=== PATIENT | female | born 1985 | race American Indian/Alaskan Native ===

== ENCOUNTER 2021-01-19 20:03 | Emergency (ER) | payer MEDICAID, OTHER ==
[2021-01-19 20:46] VITALS: BP 118/76
--- NOTE | 2021-01-19 21:07 | Event Note ---
ED Screening Note ED Screening Note: reports syncopal episode today states she "woke up on the bed" she states she had a rapid negative COVID test states she has had abdominal pain, back pain, occasional dry cough, diarrhea, SOB she denies any vomiting, CP, fever, leg swelling no recent travel, sick contact, or recent surgery pmhx asthma and "muscle spasms" endorses marijuana use and occasional ETOH use This initial assessment/diagnostic orders/clinical plan/treatment(s) is/are subject to change based on patients health status, clinical progression and re- assessment by fellow clinical providers in the ED. Further treatment and workup at subsequent clinical providers discretion. Patient/guardian urged not to elope from the ED as their condition may be serious if not clinically assessed and managed. Initial orders include: labs, EKG, CXR
[2021-01-19 21:24] LABS: Basophils % (Auto) 0.2 % (0.0-1.8); Eosinophils # (Auto) 0.1 K/mm3 (0.0-0.4); Eosinophils % (Auto) 0.6 % (0.0-4.3); Hematocrit 43.8 % (30.3-42.9); Hemoglobin 14.7 gm/dl (10.1-14.3); Lymphocytes # (Auto) 4.5 K/mm3 (1.2-5.4); Lymphocytes % (Auto) 45.7 % (13.4-35.0); Mean Corpuscular HGB Conc 34 % (30-34); Mean Corpuscular Volume 88 fl (79-97); Monocytes # (Auto) 0.7 K/mm3 (0.0-0.8); Monocytes % (Auto) 6.6 % (0.0-7.3); Platelet Count 186 K/mm3 (140-440); Red Blood Count 4.97 M/mm3 (3.65-5.03); Red Cell Distribution Width 13.2 % (13.2-15.2)
[2021-01-19 21:47] LABS: Alanine Aminotransferase 21 units/L (7-56); Albumin 4.5 g/dL (3.9-5); Blood Urea Nitrogen 14 mg/dL (7-17); Calcium 8.7 mg/dL (8.4-10.2); Hemolysis Index 17
[2021-01-19 21:48] LABS: BUN/Creatinine Ratio 20
--- NOTE | 2021-01-19 22:11 | XRay Report ---
CHEST 2 VIEWS INDICATION / CLINICAL INFORMATION: SOB. COMPARISON: None available. FINDINGS: SUPPORT DEVICES: None. HEART / MEDIASTINUM: No significant abnormality. LUNGS / PLEURA: No significant pulmonary or pleural abnormality. No pneumothorax. ADDITIONAL FINDINGS: No significant additional findings. IMPRESSION: 1. No acute findings. Signer Name: Heath Turcios MD Signed: 01/19/2021 10:06 PM Workstation Name: [id number]
[2021-01-19 22:36] LABS: Bilirubin,Urine NEG (Negative); Blood,Urine NEG (Negative); Color,Urine Yellow (Yellow); Mucus,Urine FEW /HPF; Protein,Urine <15 mg/dL mg/dL (Negative)
[2021-01-19] MEDS ORDERED: HYDROmorphone 1 MG/1 ML INJ IV ONE (22:48)
[2021-01-19] MEDS ORDERED: ONDANSETRON 4 MG/2 ML INJ IV ONE (22:48)
--- NOTE | 2021-01-19 22:52 | Emergency Department Report ---
ED General Adult HPI - General Chief complaint: Syncope Stated complaint: FAINTING SPELLS/NAUSEA/BACK PAIN PUI?: No Time Seen by Provider: 01/19/21 21:04 Source: patient Mode of arrival: Ambulatory Limitations: No Limitations - History of Present Illness Initial comments: Patient is a 35-year-old female that presents emergency room with complaints of syncope, nausea, vomiting, back pain, flank pain, abdominal pain, difficulty breathing, dizziness. Patient states that she passed out yesterday and passed out today. Patient states that she had severe right flank pain and abdominal pain and then passed out. Patient states that her abdominal pain started 3 days ago. Patient states her back pain and flank pain started 3 days ago patient states for she passed out she became dizzy. Patient states her dizziness has resolved. Patient states she has not fainted since 10 AM this morning. Patient states the abdominal pain, flank pain and back pain are a 10 out of 10. Patient states the pain is better with rest. Patient states her abdominal pain, back pain and flank pain are worse with movement and palpation. Patient denies blood in her vomitus. Patient denies diarrhea. Patient states she had a Covid test 2 days ago and it was negative. Patient denies head injury. Patient denies headache. Patient denies blurry vision. Patient denies neck pain. Patient denies chest pain. Patient states her shortness of breath is only there when her pain gets really high. Patient states her pain intensity is fluctuating. Patient denies recent travel. Patient denies recent international travel. Patient denies exposure to the novel coronavirus. Patient denies sick contacts. Patient denies fever and chills. Patient denies cough. Patient denies diarrhea. Patient denies coming in contact with anybody with symptoms of the novel coronavirus. Patient's last menstrual period was December 17 through January 02. Patient states she has a Nexplanon in her left upper extremity and is no chance of . -: Sudden Location: back, abdomen Severity scale (0 -10): 10 Quality: stabbing, sharp Consistency: constant Improves with: rest Worsens with: movement Associated Symptoms: nausea/vomiting, shortness of breath. denies: confusion, chest pain, cough, diaphoresis, fever/chills, headaches, loss of appetite, m alaise, rash, seizure, syncope, weakness Treatments Prior to Arrival: none - Related Data Previous Rx's Medication Instructions Recorded Last Taken Type Ondansetron [Zofran Odt] 4 mg PO Q6HR PRN #20 tab.rapdis 01/20/21 Unknown Rx Allergies Allergy/AdvReac Type Severity Reaction Status Date / Time No Known Allergies Allergy Unverified 01/19/21 20:46 ED Review of Systems ROS: Stated complaint: FAINTING SPELLS/NAUSEA/BACK PAIN Other details as noted in HPI Constitutional: denies: chills, fever Eyes: denies: eye pain, eye discharge, vision change ENT: denies: ear pain, throat pain Respiratory: denies: cough, shortness of breath, wheezing Cardiovascular: denies: chest pain, palpitations Endocrine: no symptoms reported Gastrointestinal: as per HPI, abdominal pain, nausea, vomiting. denies: diarrhea Genitourinary: denies: urgency, dysuria, discharge Musculoskeletal: denies: back pain, joint swelling, arthralgia Skin: denies: rash, lesions Neurological: denies: headache, weakness, paresthesias Psychiatric: denies: anxiety, depression Hematological/Lymphatic: denies: easy bleeding, easy bruising ED Past Medical Hx - Past Medical History Previous Medical History?: Yes Hx Hypertension: Yes Hx Asthma: Yes Additional medical history: Muscle Spasms - Surgical History Past Surgical History?: Yes Additional Surgical History: C-sections X 2 - Family History Family history: no significant - Social History Smoking Status: Never Smoker Substance Use Type: None - Medications Home Medications: Home Medications Medication Instructions Recorded Confirmed Last Taken Type Ondansetron [Zofran Odt] 4 mg PO Q6HR PRN #20 tab.pastordis 01/20/21 Unknown Rx ED Physical Exam - General Limitations: No Limitations General appearance: alert, in no apparent distress - Head Head exam: Present: atraumatic, normocephalic - Eye Eye exam: Present: normal appearance, PERRL Pupils: Present: normal accommodation - ENT ENT exam: Present: mucous membranes moist - Neck Neck exam: Present: normal inspection - Respiratory Respiratory exam: Present: normal lung sounds bilaterally. Absent: respiratory distress, wheezes, rales - Cardiovascular Cardiovascular Exam: Present: regular rate, normal rhythm. Absent: systolic mur mur, diastolic murmur, rubs, gallop - GI/Abdominal GI/Abdominal exam: Present: soft, tenderness (Right upper quadrant tenderness, right flank tenderness.), normal bowel sounds. Absent: distended, guarding - Extremities Exam Extremities exam: Present: normal inspection - Back Exam Back exam: Present: normal inspection - Neurological Exam Neurological exam: Present: alert, oriented X3, CN II-XII intact, normal gait, reflexes normal. Absent: abnormal gait, motor sensory deficit - Psychiatric Psychiatric exam: Present: normal affect, normal mood - Skin Skin exam: Present: warm, dry, intact, normal color. Absent: rash ED Course Vital Signs 01/19/21 20:35 Temperature 98.6 F Pulse Rate 80 Respiratory 20 Rate Blood Pressure 118/76 O2 Sat by Pulse 98 Oximetry - Reevaluation(s) Reevaluation #1: Patient states she is feeling better. Patient denies nausea. Patient tolerated ambulation. Patient tolerated p.o. intake. No further dizziness or syncopal ep isodes. Patient has not had any nausea or vomiting in the ER. I discussed all results and clinical findings with patient. I discussed plan of care with patient. Patient agrees with plan of care. Patient is stable for discharge. Patient will be discharged home. Patient given discharge instruct ions. Patient voiced understanding of discharge instructions. 01/20/21 00:02 ED Medical Decision Making - Lab Data Result diagrams: 01/19/21 21:10 01/19/21 21:10 - EKG Data -: EKG Interpreted by Me EKG shows normal: sinus rhythm, axis, intervals, QRS complexes, ST-T waves Rate: normal - Radiology Data Radiology results: report reviewed, image reviewed interpreted by me: Chest x-ray: No pneumonia, no pneumothorax, no foreign body, no osseous findings, no acute findings CT ABDOMEN AND PELVIS WITH CONTRAST INDICATION / CLINICAL INFORMATION: abd pain. flank pain. TECHNIQUE: Axial CT images were obtained through the abdomen and pelvis after 100 cc of Omnipaque [address] scans at this location are performed using CT dose reduction for ALARA by means of automated exposure control. COMPARISON: None available. FINDINGS: LOWER CHEST: No significant abnormality. LIVER: No significant abnormality. GALLBLADDER: No significant abnormality. BILE DUCTS: No significant abnormality. PANCREAS: No significant abnormality. SPLEEN: No significant abnormality. ADRENALS: No significant abnormality. RIGHT KIDNEY / URETER: No significant abnormality. LEFT KIDNEY / URETER: No significant abnormality. STOMACH / SMALL BOWEL: Stomach is distended with fluid and food. There are few fluid-filled loops of small bowel. There is no obstruction. COLON: No significant abnormality. APPENDIX: No significant abnormality. PERITONEUM: No free fluid. No free air. No fluid collection. LYMPH NODES: There are small enhancing nodes in the mesentery which are likely reactive. AORTA / ARTERIES: No significant abnormality. IVC / VEINS: No significant abnormality. URINARY BLADDER: No significant abnormality. REPRODUCTIVE ORGANS: No significant abnormality. ADDITIONAL FINDINGS: None. SKELETAL SYSTEM: No significant abnormality. IMPRESSION: 1. Stomach is mildly distended with fluid and food. There are some fluid-filled loops of small bowel scattered in the abdomen. This is a nonspecific finding but could indicate an enteritis. There is no bowel obstruction. CHEST 2 VIEWS INDICATION / CLINICAL INFORMATION: SOB. COMPARISON: None available. FINDINGS: SUPPORT DEVICES: None. HEART / MEDIASTINUM: No significant abnormality. LUNGS / PLEURA: No significant pulmonary or pleural abnormality. No pneumothorax. ADDITIONAL FINDINGS: No significant additional findings. IMPRESSION: 1. No acute findings. - Medical Decision Making Patient is a 35-year-old female that presents emergency room with complaints of syncope, abdominal pain, flank pain, back pain, nausea, vomiting, dizziness and lightheadedness. Patient had a syncopal episode yesterday and 1 today. Patient had abdominal pain and nausea and vomiting and back pain flank pain for 3 days. Patient is on initial evaluation states that her lightheadedness and dizziness have resolved. Patient had a CT scan to rule out acute abdominal process and kidney stone. Patient found to have gastroenteritis. Patient had a chest x-ray which was negative for acute findings. I personally reviewed the chest x-ray. Patient EKG which was negative for acute finding and normal EKG and normal sinus rhythm with normal ST segments. I personally reviewed the EKG. Patient had labs done which were essentially unremarkable. Patient's UA shows hematuria. But no other acute findings on UA. No kidney stones noted on CT scan. Patient also complained of shortness of breath due to the severity of pain. Patient ambulated without any respiratory distress or dizziness or lightheadedness after treatment and fluids were given to her. Patient pain improved with Dilaudid. Patient stable for discharge. Patient be discharged home. Patient given discharge instructions. - Differential Diagnosis Abdominal pain, kidney stone, gastroenteritis, syncope, dizziness,N/v Critical care attestation.: If time is entered above; I have spent that time in minutes in the direct care of this critically ill patient, excluding procedure time. ED Disposition Clinical Impression: Gastroenteritis, Flank pain Syncope Qualifiers: Syncope type: unspecified Qualified Code(s): R55 - Syncope and collapse Abdominal pain Qualifiers: Abdominal location: upper abdomen, unspecified Qualified Code(s): R10.10 - Upper abdominal pain, unspecified Nausea & vomiting Qualifiers: Vomiting type: unspecified Vomiting Intractability: non-intractable Qualified Code(s): R11.2 - Nausea with vomiting, unspecified Disposition: DC- TO HOME OR SELFCARE Is pt being admited?: No Does the pt Need Aspirin: No Condition: Stable Instructions: Syncope (ED), Viral Gastroenteritis, Adult, [id number], Nausea and Vomiting, Adult, [id number], Abdominal Pain, Adult, [id number] Additional Instructions: Patient to follow-up with primary care in 2 to 3 days. Patient to follow-up with instructional resource teacher in 2 to 3 days. Patient to rest. Patient to increase water. Patient to avoid strenuous exercise or heavy lifting until cleared by primary care. patient to take Tylenol or ibuprofen as needed for pain. Patient to take meds as directed. Patient to eat a brat diet. Patient to return to the ER if condition worsens, changes or new symptoms arise. Prescriptions: Ondansetron [Zofran Odt] 4 mg PO Q6HR PRN #20 tab.rapdis PRN Reason: Nausea And Vomiting Referrals: PRIMARY CARE, [Primary Care Provider] - 2-3 Days Time of Disposition: 00:10
--- NOTE | 2021-01-19 23:57 | Cat Scan Report ---
CT ABDOMEN AND PELVIS WITH CONTRAST INDICATION / CLINICAL INFORMATION: abd pain. flank pain. TECHNIQUE: Axial CT images were obtained through the abdomen and pelvis after 100 cc of Omnipaque [address] scans at this location are performed using CT dose reduction for ALARA by means of automated exposure control. COMPARISON: None available. FINDINGS: LOWER CHEST: No significant abnormality. LIVER: No significant abnormality. GALLBLADDER: No significant abnormality. BILE DUCTS: No significant abnormality. PANCREAS: No significant abnormality. SPLEEN: No significant abnormality. ADRENALS: No significant abnormality. RIGHT KIDNEY / URETER: No significant abnormality. LEFT KIDNEY / URETER: No significant abnormality. STOMACH / SMALL BOWEL: Stomach is distended with fluid and food. There are few fluid-filled loops of small bowel. There is no obstruction. COLON: No significant abnormality. APPENDIX: No significant abnormality. PERITONEUM: No free fluid. No free air. No fluid collection. LYMPH NODES: There are small enhancing nodes in the mesentery which are likely reactive. AORTA / ARTERIES: No significant abnormality. IVC / VEINS: No significant abnormality. URINARY BLADDER: No significant abnormality. REPRODUCTIVE ORGANS: No significant abnormality. ADDITIONAL FINDINGS: None. SKELETAL SYSTEM: No significant abnormality. IMPRESSION: 1. Stomach is mildly distended with fluid and food. There are some fluid-filled loops of small bowel scattered in the abdomen. This is a nonspecific finding but could indicate an enteritis. There is no bowel obstruction. Signer Name: Kike Roland MD Signed: 01/19/2021 11:53 PM Workstation Name: [id number]
== END 2021-01-20 00:20 | disposition home or self-care (01) ==
LOC: ED 20:03
DX: K52.9 Noninfective gastroenteritis and colitis, unspecified (principal); R55 Syncope and collapse; R11.2 Nausea with vomiting, unspecified; R10.11 Right upper quadrant pain; I10 Essential (primary) hypertension; J45.909 Unspecified asthma, uncomplicated; Z98.890 Other specified postprocedural states; Z79.899 Other long term (current) drug therapy
CPT/HCPCS: 36415; 71046; 74177; 80053; 81001; 82550; 83735; 84484; 84703; 85025; 93005; 96374; 96375; 99284; J1170; J2405; Q9967

== ENCOUNTER 2021-02-01 21:29 | Emergency (ER) | payer OTHER ==
[2021-02-01 22:53] VITALS: BP 113/68
--- NOTE | 2021-02-01 23:05 | Emergency Department Report ---
Chief Complaint: Upper Respiratory Infection Stated Complaint: HEADACHE;COUGH;ABDOMINAL PAIN Time Seen by Provider: 02/01/21 22:51 - HPI History of Present Illness: 35-year-old female patient presents to the emergency department with complaints of frontal headache, nonproductive cough, nasal congestion, ear pain, and sore throat for 3 weeks. States she has not taken any medications for her symptoms. No known sick contacts. No recent steroid or antibiotic use. No recent travel. Multiple attempts to schedule appointment with primary care provider have reportedly been unsuccessful. Denies seizure, syncope, hemoptysis, shortness of breath, wheezing, vomiting, neck stiffness, rash. Denies all other complaints at this time. - ROS Review of Systems: GENERAL: Negative for fever, chills, weight change, anorexia, fatigue. ENT: Positive for congestion, sore throat, and ear pain. CARDIOVASCULAR: Negative for chest pain, palpitations, lower extremity swelling. PULMONARY: Positive for cough. GASTROINTESTINAL: Negative for abdominal pain, nausea, vomiting, diarrhea, constipation. MUSCULOSKELETAL: Negative for joint pain, joint swelling, myalgias, back pain, neck pain. NEUROLOGICAL: Positive for headache INTEGUMENTARY: Negative for erythema, rash, diaphoresis, laceration, ecchymosis. HEMATOLOGICAL: Negative for hemoptysis, hematemesis, hematochezia, hematuria. PSYCHIATRIC: Negative for hallucinations, suicidal ideation, homicidal ideation, anxiety, depression. - Exam Vital Signs: Vital Signs 02/01/21 22:10 Temperature 99.3 F Pulse Rate 82 Respiratory 18 Rate Blood Pressure 113/68 O2 Sat by Pulse 99 Oximetry Physical Exam: General: Awake and alert. No acute distress. Head: Atraumatic, normocephalic. Tenderness to palpation along bilateral frontal sinuses and right maxillary sinus. Eyes: EOMI. Pupils are equal and round. Normal sclera and conjunctiva. ENT: Nasal congestion present. Oral mucosa is moist. Normal pharyngeal exam. Normal otoscopic exam. Neck: Supple. No lymphadenopathy. Pulmonary: No respiratory distress. Clear to auscultation bilaterally. Cardiac: Regular rate and rhythm. Pulses are palpable and equal bilaterally. No lower extremity cyanosis or edema. Skin: Warm and dry. No rashes. Abdomen: Soft, non-tender, non-protuberant. No guarding, rigidity, or rebound. Bowel sounds are normal. No organomegaly or masses noted. Back: Normal alignment. No CVA tenderness. Extremities: Symmetrical. Full range of motion intact. Neurological: Alert and oriented, appropriately interactive, no focal deficits. Psych: Cooperative. Appropriate mood and affect. Speech is evenly metered. Thoughts are logically construed. MSE screening note: Focused history and physical exam performed. Due to findings the following was ordered: ED Medical Decision Making - Medical Decision Making Patient presents to the emergency department with sinusitis for 3 weeks. She is afebrile, normal vital signs, no respiratory distress, tolerating PO without difficulty. She is not currently taking any medications. Given duration of symptoms >14 days, patient is an appropriate candidate for antibiotics as well as symptomatic treatment. Emphasized the importance of following up with primary care provider this week. Patient expressed understanding and is agreeable to plan of care. Disease transmission precautions discussed. Strict return precautions provided. History, exam, diagnostic testing, and current condition do not suggest worrisome pathology to warrant further testing, continued ED treatment, admission, or surgical evaluation at this point. Given the low probability of a significant medical illness, it would be more likely to result in harm than benefit to perform further testing at this stage. Discussed findings, presumptive diagnosis, need for follow-up and specific signs/symptoms that should prompt immediate return to the emergency department. Instructions were explained in detail to the patient in addition to giving written discharge information. Patient expressed understanding and was given the opportunity to ask questions, all of which were satisfactorily answered prior to discharge home. ED Disposition for MSE Clinical Impression: Acute sinusitis with symptoms > 10 days Disposition: DC-01 TO HOME OR SELFCARE Is pt being admited?: No Does the pt Need Aspirin: No Condition: Stable Instructions: Sinusitis, Adult, [id number] Additional Instructions: Take Tylenol every 4 hours and Motrin every 8 hours as needed for pain. Take Bromfed as directed for cough/congestion. Take Augmentin with food as directed. Increase your dietary intake of probiotic rich foods while taking this medication. Honey is an excellent natural cough suppressant. Rest. Drink plenty of fluids. Wash hands frequently to prevent disease transmission. Do not share food or drinks with others Follow-up with Dr. Perea, primary care provider, within 1 week. Call Thursday to schedule an appointment. Return to the emergency department immediately for new or worsening symptoms. Prescriptions: Amoxicillin/Potassium Clav [Augmentin 875-125 Tablet] 1 each PO BID 5 Days tablet Brompheniramine/Pseudoephed/Dm [Bromfed Dm Cough Syrup] 10 ml PO Q4H #1 bottle Referrals: MISHA LIRIANO MD [Primary Care Provider] - 3-5 Days EDITH PEREA MD [Staff Physician] - 3-5 Days Forms: Work/School Release Form(ED) Time of Disposition: 23:05
== END 2021-02-01 23:11 | disposition home or self-care (01) ==
LOC: ED 21:29
DX: J01.90 Acute sinusitis, unspecified (principal)
CPT/HCPCS: 99281

== ENCOUNTER 2022-04-16 15:22 | Outpatient (CLI) | payer OTHER ==
--- NOTE | 2022-04-16 16:10 | XRay Report ---
LUMBAR SPINE 2 VIEWS INDICATION: BACK INJURY. COMPARISON: None. IMPRESSION: There is minimal dextrocurvature near the thoracolumbar junction measuring approximately 5 degrees with apex near T12 level. There is normal alignment on the lateral view. No evidence for acute injury or bone lesion. Mild disc space narrowing and facet arthropathy are identified at L5-S1. The remaining levels are unremarkable. No acute osseous or soft tissue abnormality. Signer Name: Giovany Ruvalcaba Jr, MD Signed: 04/16/2022 4:06 PM Workstation Name: [id number]
== END 2022-04-16 15:23 | disposition home or self-care (01) ==
LOC: XRAY 15:22
PROVIDERS: ATTEND Internal Medicine
DX: M47.817 Spondylosis without myelopathy or radiculopathy, lumbosacral region (principal); M48.07 Spinal stenosis, lumbosacral region
CPT/HCPCS: 72100